=== PATIENT | male | born 1955 | race Two or more races ===

== ENCOUNTER 2017-08-11 03:50 | Emergency (ER) | payer MEDICAID ==
[2017-08-11 05:07] LABS: BASOPHIL % 0.5 % (0-2); PLATELET COUNT 265 x10^3mcL (130-400); RED CELL DISTRIBUTION WIDTH 13.5 % (11.5-14.5)
[2017-08-11 05:13] LABS: CARBON DIOXIDE 28.3 mmol/L (21-32); CHLORIDE SERUM 104 mmol/L (98-107); GFR1 > 60 mL/min; GLUCOSE SERUM 112 mg/dL (74-106); POTASSIUM SERUM 3.7 mmol/L (3.5-5.1); SODIUM SERUM 141 mmol/L (136-145)
[2017-08-11 05:19] LABS: ALBUMIN 4.1 g/dL (3.4-5.0); ALKALINE PHOSPHATASE 50 U/L (46-116); ALT/SGPT 27 U/L (16-63); AST/SGOT 16 U/L (15-37); BILIRUBIN TOTAL 0.5 mg/dL (0.20-1.00); TOTAL PROTEIN, SERUM 7.5 g/dL (6.4-8.2)
[2017-08-11 06:27] VITALS: BP 153/78
== END 2017-08-11 06:27 | disposition home or self-care (01) ==
LOC: ED 03:50
PROVIDERS: Emergency Medicine
DX: R00.2 Palpitations (principal); T50.905A Adverse effect of unspecified drugs, medicaments and biological substances, initial encounter; Y92.9 Unspecified place or not applicable
CPT/HCPCS: 36415; Q0092

== ENCOUNTER 2017-10-17 10:00 | Emergency (ER) | payer MEDICAID ==
[~2017-10-17] VITALS: Ht 165.1 cm; Wt 62.1 kg
[2017-10-17 10:09] VITALS: Ht 165.1 cm; Wt 62.1 kg
[2017-10-17 11:22] VITALS: BP 133/66
== END 2017-10-17 12:00 | disposition home or self-care (01) ==
LOC: ED 10:00
DX: J06.9 Acute upper respiratory infection, unspecified (principal); S29.011A Strain of muscle and tendon of front wall of thorax, initial encounter; X58.XXXA Exposure to other specified factors, initial encounter; Y93.89 Activity, other specified; Y92.89 Other specified places as the place of occurrence of the external cause; Y99.8 Other external cause status
CPT/HCPCS: J1885; Q0092

== ENCOUNTER 2020-07-25 08:18 | Emergency (ER) | payer OTHER ==
[~2020-07-25] VITALS: Ht 157.5 cm; Wt 59.0 kg
[2020-07-25 08:28] VITALS: Ht 157.5 cm; Wt 59.0 kg
[2020-07-25 09:34] LABS: CARBON DIOXIDE 29.4 mmol/L (21-32); CHLORIDE SERUM 104 mmol/L (98-107); GFR1 > 60 mL/min; GLUCOSE SERUM 118 mg/dL (74-106); POTASSIUM SERUM 4.1 mmol/L (3.5-5.1); SODIUM SERUM 142 mmol/L (136-145)
[2020-07-25 09:38] LABS: ALBUMIN 3.8 g/dL (3.4-5.0); ALKALINE PHOSPHATASE 52 U/L (46-116); ALT/SGPT 30 U/L (16-63); AST/SGOT 16 U/L (15-37); BILIRUBIN TOTAL 0.7 mg/dL (0.20-1.00); TOTAL PROTEIN, SERUM 6.7 g/dL (6.4-8.2)
[2020-07-25 10:23] LABS: BASOPHIL % 0.1 % (0-2); PLATELET COUNT 220 x10^3mcL (130-400); RED CELL DISTRIBUTION WIDTH 13.7 % (11.5-14.5)
[2020-07-25 11:00] VITALS: BP 125/64
== END 2020-07-25 11:01 | disposition home or self-care (01) ==
LOC: ED 08:18
PROVIDERS: Emergency Medicine
DX: R00.2 Palpitations (principal); K08.89 Other specified disorders of teeth and supporting structures